=== PATIENT | female | born 1955 | race Caucasian/White ===

== ENCOUNTER 2018-05-16 16:17 | Emergency (ER) | payer OTHER ==
[~2018-05-16] VITALS: Ht 160 cm; Wt 95.3 kg
[~2018-05-16 16:17] MED LIST: ACETAMINOPHEN325 M1 PO; AMOXICILLIN875 MG PO; ASPIRIN325 PO; AVELOX 400 MG400 MG PO; AZITHROMYCIN 2250 MG PO; LEXAPRO PO; NORCO 5-325 TA1 EACH PO; PREDNISONE 20 M20 M1 PO; PROVENTIL HFA6.7 G1 INH; SYNTHROID PO; SYNTHROID300 MCG PO; TOPAMAX25 M1 PO; VICODIN 5-5001 EACH PO
[2018-05-16] MEDS ORDERED: SERTRALINE HCL50 MG PO (16:35)
[2018-05-16 17:00] LABS: ABSOLUTE BASOPHILS 0.1 thou/uL (0.0-0.2); ABSOLUTE EOSINOPHILS 0.2 thou/uL (0.0-0.7); ABSOLUTE LYMPHOCYTES 3.2 thou/uL (0.8-5.3); ABSOLUTE MONOCYTES 0.9 thou/uL (0.0-1.2); ABSOLUTE NEUTROPHILS 5.5 thou/uL (1.6-8.1); BASOPHILS 1.4 %; EOSINOPHILS 1.7 %; HEMATOCRIT 41.1 % (37.0-47.0); HEMOGLOBIN 13.8 gm/dL (12.0-15.0); LYMPHOCYTES 32.7 %; MCH 28.1 pg (26.0-34.0); MCHC 33.6 g/dL (28.0-37.0); MCV 83.6 fL (80.0-100.0); MONOCYTES 8.8 %; MPV 8.2 fl. (7.2-11.1); NUCLEATED RBCS 0 /100WBC; PLATELET COUNT* 348 thou/uL (150-400); POLYS 55.4 %; RBC 4.92 mil/uL (4.20-5.00); RDW-CV 14.4 % (10.5-14.5); WBC 9.8 thou/uL (4.0-11.0)
[2018-05-16 17:08] LABS: CALCIUM 9.5 mg/dL (8.5-10.1); CREATININE 0.6 mg/dL (0.6-1.3); POTASSIUM 3.8 mmol/L (3.5-5.1); PROTIME 10.1 Seconds (9.20-11.50)
[2018-05-16 17:13] LABS: ALBUMIN 3.6 g/dL (3.4-5.0); TOTAL BILIRUBIN 0.3 mg/dL (<0.1-1.0)
[2018-05-16] MEDS ORDERED: BACTRIM DS TAB1 EAC1 PO (17:56)
[2018-05-16 18:10] VITALS: BP 148/79
== END 2018-05-16 18:13 | disposition home or self-care (01) ==
LOC: M.ERS 16:17
PROVIDERS: Physician Assistant Surgical
DX: L03.115 Cellulitis of right lower limb (principal); Z88.8 Allergy status to other drugs, medicaments and biological substances

== ENCOUNTER 2018-12-06 17:07 | Emergency (ER) | payer OTHER ==
[~2018-12-06] VITALS: Ht 162.6 cm; Wt 81.7 kg
[~2018-12-06 17:07] MED LIST changes: +BACTRIM DS TAB1 EAC1 PO; +SERTRALINE HCL50 MG PO
[2018-12-06 17:36] VITALS: BP 143/92
== END 2018-12-06 17:42 | disposition home or self-care (01) ==
LOC: M.ERS 17:07
DX: J95.09 Other tracheostomy complication (principal); Z88.4 Allergy status to anesthetic agent; Z88.8 Allergy status to other drugs, medicaments and biological substances; Z87.01 Personal history of pneumonia (recurrent); Z86.14 Personal history of Methicillin resistant Staphylococcus aureus infection; Z96.659 Presence of unspecified artificial knee joint

== ENCOUNTER 2020-11-15 17:34 | Emergency (ER) | payer MEDICARE ==
[~2020-11-15] VITALS: Ht 162.6 cm; Wt 95.3 kg
[2020-11-15] MEDS ORDERED: CHOLESTROL MED (18:08)
[2020-11-15] MEDS ORDERED: NORCO 5-325 TA1 EAC2 PO (18:52)
[2020-11-15] MEDS ORDERED: PENICILLIN VK500 M1 PO (18:52)
[2020-11-15 18:58] VITALS: BP 161/84
== END 2020-11-15 18:58 | disposition home or self-care (01) ==
LOC: M.ERS 17:34
DX: S02.5XXA Fracture of tooth (traumatic), initial encounter for closed fracture (principal); K02.9 Dental caries, unspecified; Z87.01 Personal history of pneumonia (recurrent); Z86.14 Personal history of Methicillin resistant Staphylococcus aureus infection; Z96.659 Presence of unspecified artificial knee joint; Z88.8 Allergy status to other drugs, medicaments and biological substances; Z88.4 Allergy status to anesthetic agent; X58.XXXA Exposure to other specified factors, initial encounter; Y93.89 Activity, other specified; Y92.89 Other specified places as the place of occurrence of the external cause; Y99.8 Other external cause status